=== PATIENT | male | born 1955 | race Caucasian/White ===

== ENCOUNTER 2019-02-20 14:59 | Emergency (ER) | payer BC, OTHER ==
[2019-02-20] MEDS ORDERED: oxyCODONE/Acetamin 5/325 MG* TAB PO ONE ×2 (15:18→17:09)
[2019-02-20] MEDS ORDERED: Tetan/Diph/Pertus SYR(Tdap)* 0.5 ML SYR(BOOSTRIX) use SYR contains LATEX IM ONE (15:18)
--- NOTE | 2019-02-20 15:23 | ED ---
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 He states that he was chopping wood and accidentally chopped his hand with an axe. He notes that he was bleeding profusely from a laceration on his left hand so bandage was placed. Not on blood thinners. He rates his current pain severity a 6/10. - History of Current Complaint Stated Complaint: LT HAND INJURY PER PT Time Seen by Provider: 02/20/19 15:06 Hx Obtained From: Patient Onset/Duration: Sudden Onset, Lasting Hours, Still Present Aggravating: Nothing Alleviating: Nothing Onset Severity: Moderate Current Severity: Moderate Pain Intensity: 6 Pain Scale Used: 0-10 Numeric Associated Signs & Symptoms: Negative - fever Related Hx: Dominant Hand (Left) - Allergy/Home Medications Allergies/Adverse Reactions: Allergies Allergy/AdvReac Type Severity Reaction Status Date / Time No Known Allergies Allergy Verified 03/12/15 09:51 PMH/Surg Hx/FS Hx/Imm Hx Sensory History: Denies: Hx Legally Blind, Hx Deafness Opthamlomology History: Denies: Hx Legally Blind EENT History: Denies: Hx Deafness - Surgical History Surgical History: None Surgery Procedure, Year, and Place: none Infectious Disease History: No Infectious Disease History: Denies: History Other Infectious Disease, Traveled Outside the [place] in Last 30 Days - Family History Known Family History: Negative: Cardiac Disease, Hypertension, Diabetes - Social History Alcohol Use: Daily Alcohol Amount: "3 drinks" Substance Use Type: Reports: None Hx Tobacco Use: No Smoking Status (MU): Never Smoked Tobacco Review of Systems Negative: Fever Musculoskeletal: Other - pos - left hand pain Skin: Other - pos - left hand laceration All Other Systems Reviewed And Are Negative: Yes Physical Exam - Summary Physical Exam Summary: Constitutional: Well-developed, Well-nourished, Alert. (-) Distressed Skin: Warm, Dry, left hand has a 3 cm lac below the 2nd and 3rd MTPs HENT: Normocephalic; Atraumatic Eyes: Conjunctiva normal Neck: Musculoskeletal ROM normal neck. (-) JVD, (-) Stridor, (-) Nuchal rigidity Cardio: Rhythm regular, rate normal, Heart sounds normal; Intact distal pulses; Radial pulses are 2+ and symmetric. (-) Murmur Pulmonary/Chest wall: Effort normal. Abd: Soft, (-) tenderness, (-) Distension Musculoskeletal: Left Hand PE tenderness w edema of L dorsal hand Motor: Unable to fully extend 3rd finger, able to flex finger. Able to extend thumb Able to flex and extend wrist Able to spread fingers Sensory: Sensation intact in 1st, 2nd, and 5th digits Pulse: 2+ radial pulse intact. Brisk cap refill. Neuro: Alert, Oriented x3 Psych: Mood and affect Normal Triage Information Reviewed: Yes Vital Signs On Initial Exam: Initial Vitals Temp Pulse Resp BP Pulse Ox 97.2 F 108 20 198/114 96 02/20/19 15:05 02/20/19 15:05 02/20/19 15:05 02/20/19 15:05 02/20/19 15:05 Vital Signs Reviewed: Yes Procedures - Sedation Patient Received Moderate/Deep Sedation with Procedure: No - Splinting Left Upper Extremity Location: L forearm Hand-Made Type: fiberglass Splint: volar Pre-Proc Neuro Vasc Exam: normal Post-Proc Neuro Vasc Exam: unchanged from pre-exam - Laceration/Wound Repair 1 Location: upper extremity Irrigated w/ Saline (ccs): 500 Suture Type: Prolene - 4.0 Number of Sutures: 3 - 2 x simple interrupted, 1 x horizontal mattress Diagnostics - Vital Signs Vital Signs Temp Pulse Resp BP Pulse Ox 02/20/19 15:05 97.2 F 108 20 198/114 96 - Laboratory Lab Statement: Any lab studies that have been ordered have been reviewed, and results considered in the medical decision making process. - Radiology Hand XR Radiology Interpretation Completed By: Radiologist Summary of Radiographic Findings: IMPRESSION: MINIMALLY DISPLACED FRACTURE OF THE HEAD OF THE THIRD METACARPAL. ED Physician has reviewed this report. - CT Upper Extremity CT CT Interpretation Completed By: Radiologist Summary of CT Findings: IMPRESSION: AGAIN NOTED IS A MINIMALLY DISPLACED FRACTURE OF THE HEAD OF THE THIRD METACARPAL. ED Physician has reviewed this report. Laceration Repair Course/Dx - Course Course Of Treatment: 63 y/o male w L hand injury after saw. - neurovascularly intact, hematoma to hand. - PE w 3 cm laceration to dosrum hand near 3rd MTP, limited extension of 3rd finger concern for tendon injury. XR w 3rd met head fracture. Given ancef here, keflex to go. percocet for pain. ortho agrees w lac repair, volar splint, f/u with them - Clinical Impression Provider Diagnoses: Closed fracture of 3rd metacarpal - Physician Notifications Discussed Care Of Patient With: Benji Menendez - Dr. Menendez recommends CT scan for further plan and follow up next Thursday. Time Discussed With Above Provider: 16:16 Discharge ED - Sign-Out/Discharge Documenting (check all that apply): Patient Departure - discharge - Discharge Plan Condition: Stable Disposition: HOME Prescriptions: Cephalexin CAP* [Keflex CAP*] 500 mg PO QID 7 Days #28 cap Patient Education Materials: Hand Fracture (ED) Referrals: Philippe Sawyer MD [Primary Care Provider] - 3 Days Benji Menendez MD [Medical Doctor] - 3 Days Additional Instructions: You were seen in the emergency department for a hand injury. You likely have a hand fracture and tendon injury. Please take Keflex 4 times per day at home, please follow-up with orthopedics. Please take Percocet for pain. Please follow up with your primary care doctor in next 2-3 days and return to emergency department for worsening pain, numbness or tingling of hand, fever or concerning symptoms. It was a pleasure taking care of you today. - Billing Disposition and Condition Condition: STABLE Disposition: Home - Attestation Statements Document Initiated by Chris: Yes Documenting Scribe: Herve Byrd Provider For Whom Chris is Documenting (Include Credential): Brittni Bergman MD Scribe Attestation: I, Herve Byrd, scribed for Brittni Bergman MD on 02/20/19 at 1716. Scribe Documentation Reviewed: Yes Provider Attestation: The documentation as recorded by the Herve faye accurately reflects the service I personally performed and the decisions made by me, Brittni Bergman MD Status of Scribe Document: Viewed
--- OUTSIDE RECORDS SUMMARY | 2019-02-20 15:38 | XMS REPORT | Continuity of Care Document ---
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 Unknown Quit at age 19. Tobacco Use Start: Unknown End: Former Cigar Smoker, Smoked for 3 years. Unknown Smoked An Occasional Quit at age 59. Cigar Tobacco Use Start: Unknown Never Smoked A Pipe Smokeless Tobacco Never Used Smokeless Tobacco ETOH Use Currently occasionally consumes alcohol Tobacco Use Start: Unknown End: Patient is a former Unknown smoker Smoking Status Reviewed: 01/27/19 Patient is a former smoker Allergies, Adverse Reactions, Alerts Description No Known Drug Allergies Medications Active Medications SIG Qnty Indications Ordering Provider Date Tamsulosin HCL daily Unknown 0.4mg Capsules Pravastatin Sodium daily Unknown 80mg Tablets Immunizations Description No Information Available Vital Signs Date Vital Result Comment 01/27/2019 9:16am Weight 179.00 lb Weight 81.194 kg Height 69 inches 5'9" Height in cm's 175.3 cm BMI (Body Mass Index) 26.4 kg/m2 Results Description No Information Available Procedures Description No Information Available Medical Devices Description No Information Available Encounters Description No Information Available Assessments Date Code Description Provider 01/27/2019 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
--- OUTSIDE RECORDS SUMMARY | 2019-02-20 15:38 | XMS REPORT | Summary of Care ---
:1955 Author Organization [facility] Address [address] [place] [address] Care Team Providers Name Role Phone Philippe Sawyer Primary Care Provider Reason for Referral Refer to Department Only (Routine) Status Reason Specialty Diagnoses / Referred By Referred To Procedures Contact Contact Pending Review OTORHINOLARYNGOLOGY Diagnoses Lesion of nose Philippe Sawyer MD [address] [place] [address] Scheduling Instructions Please indicate side affected in the diagnosis. Reason for Visit Reason Comments Epistaxis pt states he has a laceration in his nose Injection flu vaccine Encounter Details Date Type Department Care Team Description 01/13/2019 Office Visit [facility] Philippe Sawyer MD Lesion of nose Practice [address] [facility] (Primary Dx) [address] [place] [address] [phone] Allergies No Known Allergiesdocumented as of this encounter (statuses as of 01/13/2019) Medications Medication Sig Dispensed Refills Start Date End Date Status Pravastatin Sodium 80 take 1 tablet by 90 Tab 1 07/14/2018 Active MG Oral Tab mouth once daily Tamsulosin HCl (FLOMAX) Take 1 Cap by 30 Cap 5 08/06/2018 Active 0.4 MG Oral Cap mouth DAILY. documented as of this encounter (statuses as of 01/13/2019) Active Problems Problem Noted Date Ulcerative colitis without complications 03/11/2016 Ventricular tachycardia Overview: asymptomatic VT seen on stress testing July 2009, normal cath August 2009 Hypertension Overview: severe hypertensive response during exercise stress test July 2009 BPPV (benign paroxysmal positional vertigo) Overview: single episode 2010 due to work stress Dyslipidemia Overview: Tc 255, LDL 165, HDL 45, [place] risk 16% documented as of this encounter (statuses as of 01/13/2019) Immunizations Name Administration Dates Next Due Influenza (IM) Preservative Free 01/13/2019, 02/26/2018, 02/13/2017, 12/20/2014 MMR VACCINE 07/05/2015 TDAP Vaccine 10/07/2012 documented as of this encounter Social History Tobacco Use Types Packs/Day Years Used Date Former Smoker Cigarettes 1 8 Quit: 04/13/1977 Smokeless Tobacco: Never Used Alcohol Use Drinks/Week oz/Week Comments Yes 18 Cans of beer 18.0 occasional, responsible Sex Assigned at Date Recorded Not on file Job Start Date Occupation Industry Not on file Not on file Not on file Travel History Travel Start Travel End No recent travel history available. documented as of this encounter Last Filed Vital Signs Vital Sign Reading Time Taken Comments Blood Pressure 144/88 01/13/2019 3:27 PM EDT Pulse 74 01/13/2019 3:27 PM EDT Temperature - - Respiratory Rate - - Oxygen Saturation 97% 01/13/2019 3:27 PM EDT Inhaled Oxygen Concentration - - Weight 82.6 kg (182 lb) 01/13/2019 3:27 PM EDT Height 175.3 cm (5' 9") 01/13/2019 3:27 PM EDT Body Mass Index 26.88 01/13/2019 3:27 PM EDT documented in this encounter Progress Notes Philippe Sawyer MD - 01/13/2019 3:20 PM EDT PATIENT: Tejas Cohn : 1955 DATE OF SERVICE: 01/13/2019 CHIEF COMPLAINT: Chief Complaint Patient presents with Epistaxis pt states he has a laceration in his nose Injection flu vaccine Subjective HISTORY OF PRESENT ILLNESS: Tejas Cohn is a 63-y.o. male. Has not been seen in a year . He has a chief complaint of left sided nose bleed that is getting worse , almost daily or every other day . Begins spontaneously It can stop after 15 minutes. He feels it is due to a scab/pain in the anterior nose Past Medical History: Diagnosis Date BPPV (benign paroxysmal positional vertigo) Dyslipidemia Hypertension severe hypertensive response during exercise stress test July 2009 Ulcerative colitis (HCC) Ventricular tachycardia (HCC) asymptomatic VT seen on stress testing July 2009, normal cath August 2009 Family History Problem Relation Age of Onset Heart Mother carotid stenosis Dementia Mother Lipids Father Cancer Father prostate Diabetes Maternal Grandfather Current Outpatient Medications Medication Sig Pravastatin Sodium 80 MG Oral Tab take 1 tablet by mouth once daily Tamsulosin HCl (FLOMAX) 0.4 MG Oral Cap Take 1 Cap by mouth DAILY. No current facility-administered medications for this visit. No Known Allergies Social History Socioeconomic History Marital status: Spouse name: Not on file Number of children: Not on file Years of education: Not on file Highest education level: Not on file Occupational History Not on file Social Needs Financial resource strain: Not on file Food insecurity: Worry: Not on file Inability: Not on file Transportation needs: Medical: Not on file Non-medical: Not on file Tobacco Use Smoking status: Former Smoker Packs/day: 1.00 Years: 8.00 Pack years: 8.00 Types: Cigarettes Last attempt to quit: 04/13/1977 Years since quittin.7 Smokeless tobacco: Never Used Substance and Sexual Activity Alcohol use: Yes Alcohol/week: 18.0 standard drinks Types: 18 Cans of beer per week Comment: occasional, responsible Drug use: No Sexual activity: Yes Partners: Female Lifestyle Physical activity: Days per week: Not on file Minutes per session: Not on file Stress: Not on file Relationships Social connections: Talks on phone: Not on file Gets together: Not on file Attends jew service: Not on file Active member of club or organization: Not on file Attends meetings of clubs or organizations: Not on file Relationship status: Not on file Intimate partner violence: Fear of current or ex partner: Not on file Emotionally abused: Not on file Physically abused: Not on file Forced sexual activity: Not on file Other Topics Concern Back Care Not Asked Bike Helmet Not Asked Blood Transfusions Not Asked Caffeine Concern Not Asked Exercise Yes Comment: jogging, walking, birding Hobby Hazards Not Asked International Travel Not Asked Service Not Asked Occupational Exposure Not Asked Seat Belt Not Asked Self-Exams Not Asked Sleep Concern Not Asked Special Diet Not Asked Stress Concern Not Asked Weight Concern Not Asked Social History Narrative Lives with . 2 adult children. 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 REVIEW OF SYSTEMS: ROS Objective PHYSICAL EXAM: VITALS: BP 144/88 (BP Location: Right arm, Patient Position: Sitting) | Pulse 74 | Ht 5' 9" (1.753 m) | Wt 182 lb (82.6 kg) | SpO2 97% | BMI 26.88 kg/m Body mass index is 26.88 kg/m. Physical Exam Vitals signs reviewed. HENT: Nose: Comments: Left anterior nares , no active bleeding but a definite warty type lesion is seen Pulmonary: Effort: Pulmonary effort is normal. Breath sounds: Normal breath sounds. Skin: Comments: Face rosacea Psychiatric: Mood and Affect: Mood normal. ASSESSMENT / IMPRESSION: ICD-9-CM ICD-10-CM 1. Lesion of nose 478.19 J34.89 It is not bleeding now so nothing to treat acutely but the lesion has to be evaluated by ENT and probably removed Plan Author: Philippe Sawyer MD 01/13/2019 20:33 documented in this encounter Plan of Treatment Name Type Priority Associated Diagnoses Order Schedule REFER TO OTOLARYNGOLOGY Referral Routine Lesion of nose Expected: (ENT) 01/13/2019, Expires: 01/14/2020 Health Maintenance Due Date Last Done Comments ZOSTER IMMUNIZATION SERIES 2004 (1 of 2) INFLUENZA VACCINE (#1) 2018 02/26/2018, 02/13/2017, 12/20/2014 DIABETES SCREENING 02/22/2019 02/22/2018, 02/17/2017, 10/23/2015, Additional history exists DEPRESSION SCREENING 02/26/2019 02/26/2018 LIPID DISORDER SCREENING 07/15/2019 07/14/2018, 02/22/2018, 02/17/2017, Additional history exists COLONOSCOPY SCREENING 06/26/2025 06/27/2015, 09/28/2008 HPV IMMUNIZATION SERIES Aged Out No longer eligible based on patient's age to complete this topic MENINGOCOCCAL VACCINE IMM Aged Out No longer eligible based on patient's age to complete this topic PNEUMOCOCCAL 0-64 YRS Aged Out No longer eligible based on patient's age to complete this topic documented as of this encounter Goals Goal Patient Goal Associated Recent Patient-Stated? Author Type Problems Progress Blood Pressure Blood Pressure 144/88 No Silverio, < 150/90 (01/13/2019 MD Philippe 3:27 PM EDT) Note: This is an individualized treatment (blood pressure) goal for Tejas Cohn: Displayed above (on the left) is your goal for blood pressure control. Your most recent blood pressure is also shown above, on the right. You should try to achieve blood pressures that are lower than your goal listed above (on the left). Take all prescribed medications as directed Self-management Philippe Love MD Note: This is an individualized self-management goal for Tejas Cohn: Please take all prescribed medications as directed. 1. Do not skip doses. If you cannot afford your medications, talk with your doctor. 2. Use a pill reminder system such as a pill box if needed. Your pharmacist can help you with this. 3. Contact your Pharmacy 5 days before your medication runs out. If you cannot take your medications for any reasons, talk with your doctor. 4. Please bring all of your medication bottles and inhalers (or a list of all your medications/inhalers) with you to every visit. Potential barriers to meeting all of your care plan goals will continue to be addressed on an ongoing basis. 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
[2019-02-20] MEDS ORDERED: Lidocaine 1% w EPI 1:100,000* MDV 20 ML VIAL INJ ONE (15:53)
[2019-02-20] MEDS ORDERED: ceFAZolin 1 GM ADVAN(*) 1 GM in NS 0.9% 50 ML* 50 ML IVPB ONE (15:57)
[2019-02-20] MEDS ORDERED: Lidocaine 1% MPF ** 5 ML VIAL ONE (16:11)
[2019-02-20] MEDS ORDERED: Cephalexin CAP* 500 MG PO ONE (17:09)
[2019-02-20 17:16] VITALS: BP 151/90
== END 2019-02-20 17:34 | disposition home or self-care (01) ==
LOC: ED 14:59
DX: S62.393A Other fracture of third metacarpal bone, left hand, initial encounter for closed fracture (principal); Z23 Encounter for immunization; W27.0XXA Contact with workbench tool, initial encounter; Y92.9 Unspecified place or not applicable
CPT/HCPCS: 12002; 90471; 90715; 96374; 99282; A9270-GY; J0690

== ENCOUNTER → 2019-02-25 10:33 | Day surgery (SDC) | payer BC ==
[~2019-02-25 10:33] MED LIST: Buffered Lidocaine 1% SYRIN* 1 ML/SYRINGE INTRADERM ONE; Dexamethasone TAB* 4 MG ONE; Dexamethasone TAB* 4 MG PO ONE; DiMENhydriNATE IV* 50 MG/ML VIAL IV PUSH PRN; Famotidine IV* 10 MG/ML 2 ML (20 mg) IV ONE; Famotidine IV* 10 MG/ML 2 ML (20 mg) ONE; HYDROmorphone INJ1* 1 MG/ML SYRINGE IV PRN; KETAMINE HCL* 50 MG/ML 10 ML VIAL ONE; Ketorolac INJ* 30 MG/ML 1 ML VIAL ONE; Lactated Ringers 1000 ML Bag* 1,000 ML IV SCH; Lidocaine 1% INJ* 10 MG/ML 30 ML SDV ONE; Lidocaine 2% PF * 5 ML VIAL ONE; Midazolam* 1 MG/ML 5 ML VIAL (5 MG) ONE; Naloxone* 0.4 MG/ML 1 ML VIAL IV PRN; Ondansetron ODT TAB* 4 MG ONE; Ondansetron ODT TAB* 4 MG PO ONE; PROCHLORPERAZINE INJ 5 MG/ML 2 ML VIAL IV PRN; Propofol* 10 MG/ML 20 ML BTL ONE; ceFAZolin 2 GM in NS PREMIX(*) 2 GM/100 ML BAG IVPB ONE; fentaNYL* 50 MCG/ML 2 ML VIAL (100 MCG VIAL) IV PRN; fentaNYL* 50 MCG/ML 2 ML VIAL (100 MCG VIAL) ONE; oxyCODONE/Acetamin 5/325 MG* TAB PO PRN
[2019-02-25 19:52] VITALS: BP 153/99
--- NOTE | 2019-02-25 20:35 | OP ---
CC: Viky Gramajo MD OPERATIVE NOTE: DATE OF OPERATION: 02/25/19 DATE OF : 53 SURGEON: Viky Gramajo MD PULP GRINDER FEEDER: [place] Muñoz ANESTHESIA: Local MAC. PRE-OP DIAGNOSES: Extensor tendon laceration, collateral ligament injury of the left middle finger. POST-OP DIAGNOSES: Extensor tendon laceration, collateral ligament injury of the left middle finger. OPERATIVE PROCEDURE: Left middle finger collateral ligament repair and left middle finger extensor t endon repair. ESTIMATED BLOOD LOSS: Zero. TOURNIQUET TIME: Approximately 30 minutes. INDICATION FOR PROCEDURE: Tejas is a 63-year-old man who suffered an injury of his left hand. He a ccidentally cut himself with a hatchet while trying to cut some wood. He cannot extend his finger an d it drifts towards the ring finger. He presents for collateral ligament repair as well as extensor tendon repair. PROCEDURE: The patient was brought to the operating room, was given a sedation anesthetic and a loca l infiltration of 10 cc of 1% plain lidocaine in the dorsal aspect of his left hand. Skin of his lef t hand and forearm was prepped and draped in the usual sterile fashion. The hand and forearm were ex sanguinated and tourniquet elevated to 250 mmHg. The sutures were removed and the wound was extended a bit proximally and distally and then we were able to find both ends of the extensor tendon. There was a laceration through the metacarpal head at the insertion of the collateral ligament with a smal l bony fragment. A drill hole for a G2 Mitek anchor was placed in the metacarpal head and the anchor was placed and then the sutures driven through the bony fragment and the collateral ligament and tie d over the bone fragment. This corrected the ulnar drift of the finger. Next, the extensor tendon w as repaired with 4-0 nylon suture in an interrupted fashion and this corrected the extensor lag of th e finger. The wound was copiously irrigated with saline. We used 2 L of saline that cleaned the wou nd and then the skin edges were reapproximated with 4-0 nylon suture. The wound was dressed with Xer oform, 4x4, Webril, the index finger was marco taped to the middle finger, and the hand was splinted with the MP joint flexed about 50 degrees. The patient tolerated the procedure well and was brought to the recovery room in good condition. [id number]/[facility] #: [id number]
== END | disposition home or self-care (01) ==
LOC: OR 10:33
PROVIDERS: ATTEND Orthopaedic Surgery
DX: S66.323A Laceration of extensor muscle, fascia and tendon of left middle finger at wrist and hand level, initial encounter (principal); S61.213A Laceration without foreign body of left middle finger without damage to nail, initial encounter; E78.00 Pure hypercholesterolemia, unspecified; X58.XXXA Exposure to other specified factors, initial encounter; W27.0XXA Contact with workbench tool, initial encounter
CPT/HCPCS: A9270-GY; C1713; J0690; J1885; J2250; J2704; J3010; J8540

== ENCOUNTER 2021-06-22 16:02 | Observation (INO) ==
[2021-06-22] MEDS ORDERED: Iodixanol (CONTRAST) 320 MG/ML 100 ML SDV IV ONE (16:38)
[2021-06-22 16:57] LABS: ABS Eosinophils 0.2 10^3/ul (0-0.6); ABS Lymphocytes 1.5 10^3/ul (1.0-4.8); ABS Monocytes 0.6 10^3/ul (0-0.8); ABS Neutrophils 3.8 10^3/ul (1.5-7.7); Hematocrit 44 % (42-52); Hemoglobin 15.1 g/dL (14.0-18.0); Lymphocyte % 24.7 %; Mean Corpuscular HGB Conc 34 g/dL (31-36); Mean Corpuscular Hemoglobin 31 pg (27-31); Mean Corpuscular Volume 91 fL (80-94); Mean Platelet Volume 7.6 fL (7.4-10.4); Nucleated Red Blood Cells % 0.1; Platelet Count 217 10^3/uL (150-450); Red Blood Count 4.85 10^6 /uL (4.18-5.48); Red Cell Distribution Width 13 % (10-15); White Blood Count 6.3 10^3/uL (3.5-10.8)
[2021-06-22 17:05] LABS: Activated Partial Thrombo Time 32.7 seconds (26.0-38.0); INR 0.97 (0.86-1.15)
[2021-06-22 17:20] LABS: Albumin 4.2 g/dL (3.2-5.2); Calcium 9.4 mg/dL (8.6-10.3); Globulin 2.1 g/dL (2-4); HDL Cholesterol 62.8 mg/dL; Potassium 4.5 mmol/L (3.5-5.0); Total Bilirubin 0.4 mg/dL (0.2-1.0); Total Protein 6.3 g/dL (6.4-8.9); eGFR CKD-EPI 79.2 (>60)
[2021-06-22] MEDS ORDERED: Al Hydrox/Mg Hydrox/Simet LIQ 30 ML UDC PO PRN (17:21)
[2021-06-22] MEDS ORDERED: Ondansetron 4 mg VIAL 2 MG/ML 2 ml VIAL IV PRN (17:21)
[2021-06-22 18:10] LABS: High Sensitivity Troponin 1 Hr 14 pg/mL (<20)
[2021-06-22] MEDS: Enoxaparin 40 MG/0.4 ML SYR SUBCUT SCH (20:38)
[2021-06-23] MEDS: Aspirin EC 81 mg TAB.EC (enteric coated) PO SCH (09:04)
[2021-06-23] MEDS ORDERED: Perflutren Lipid Microsphere 3 ML VIAL ONE (11:53)
[2021-06-23] MEDS: Enoxaparin 40 MG/0.4 ML SYR SUBCUT SCH (20:44)
[2021-06-24] MEDS: Aspirin EC 81 mg TAB.EC (enteric coated) PO SCH (08:19)
[2021-06-24 11:54] VITALS: BP 132/88
== END 2021-06-24 15:10 | disposition home or self-care (01) ==
LOC: ED 16:02 → MEDTELE 16:02
PROVIDERS: ADMIT Pediatrics; ATTEND Pediatrics